=== PATIENT | female | born 2000 | race Two or more races ===

== ENCOUNTER → 2022-01-30 | Outpatient (CLI) | payer MEDICAID ==
[2022-01-30 10:59] LABS: Basophils # (auto) 0 10 ^3/uL (0-0.2); Basophils % (auto) 0.4 % (0.0-2.0); Eosinophils # (auto) 0 10 ^3/uL (0-0.8); Eosinophils % (auto) 0.5 % (0.0-7.0); Lymphocytes # (auto) 1.7 10 ^3/uL (0.4-5.4); Monocytes # (auto) 0.4 10 ^3/uL (0-1.3)
[2022-01-30 11:00] LABS: Hematocrit 31.7 % (36.0-46.0); Hemoglobin 9.9 g/dL (12.2-16.2); Lymphocytes % (auto) 19.5 % (10.0-50.0); Mean Corpuscular Hemoglobin 22.4 pg (28.0-32.0); Mean Corpuscular Hgb Conc. 31.1 g/dL (32.0-36.0); Mean Corpuscular Volume 72.1 fL (80.0-100.0); Monocytes % (auto) 5.2 % (0.0-12.0); Neutrophils # (auto) 6.4 10 ^3/uL (1.6-8.6); Neutrophils % (auto) 74.4 % (37.0-80.0); White Blood Cell 8.6 10^3/uL (4.4-10.8)
[2022-01-30 13:53] LABS: RUBELLA Positive
[2022-01-31 08:06] LABS: RPR Non Reactive (Non Reactive)
== END | disposition home or self-care (01) ==
LOC: LAB 09:54
PROVIDERS: ATTEND Obstetrics & Gynecology Obstetrics
DX: Z34.80 Encounter for supervision of other normal pregnancy, unspecified trimester (principal); Z31.430 Encounter of female for testing for genetic disease carrier status for procreative management; Z36.0 Encounter for antenatal screening for chromosomal anomalies; N39.0 Urinary tract infection, site not specified; Z3A.00 Weeks of gestation of pregnancy not specified
CPT/HCPCS: 36415; 82951; 84112; 84702; 85025; 86592; 86703; 86762; 86850; 86900; 86901; 87086; 87340

== ENCOUNTER → 2022-02-20 | Outpatient (CLI) | payer MEDICAID ==
[2022-02-20 08:59] LABS: Alcohol, Urine < 3.0 mg/dL (0-10); Amphetamine Screen, Urine NEGATIVE (NEGATIVE); Barbiturate Scree,Urine NEGATIVE (NEGATIVE); Benzodiazephine Screen, Urine NEGATIVE (NEGATIVE); Cannabinoid Screen, Urine NEGATIVE (NEGATIVE); Cocaine Screen, Urine NEGATIVE (NEGATIVE); Opiate Scree,Urine NEGATIVE (NEGATIVE); Phencyclidine Screen, Urine NEGATIVE (NEGATIVE)
== END | disposition home or self-care (01) ==
LOC: LAB 08:03
PROVIDERS: ATTEND Obstetrics & Gynecology Obstetrics
DX: Z34.80 Encounter for supervision of other normal pregnancy, unspecified trimester (principal); Z3A.00 Weeks of gestation of pregnancy not specified
CPT/HCPCS: 80307

== ENCOUNTER → 2022-02-27 | Outpatient (CLI) | payer MEDICAID ==
[2022-02-27 10:32] LABS: Basophils # (auto) 0 10 ^3/uL (0-0.2); Eosinophils # (auto) 0 10 ^3/uL (0-0.8); Lymphocytes # (auto) 1.5 10 ^3/uL (0.4-5.4); Mean Corpuscular Hgb Conc. 30.8 g/dL (32.0-36.0); Monocytes # (auto) 0.4 10 ^3/uL (0-1.3)
[2022-02-27 10:34] LABS: Basophils % (auto) 0.5 % (0.0-2.0); Eosinophils % (auto) 0.2 % (0.0-7.0); Hematocrit 31.8 % (36.0-46.0); Hemoglobin 9.8 g/dL (12.2-16.2); Lymphocytes % (auto) 20.4 % (10.0-50.0); Mean Corpuscular Volume 71.4 fL (80.0-100.0); Neutrophils # (auto) 5.5 10 ^3/uL (1.6-8.6); Neutrophils % (auto) 73.9 % (37.0-80.0); Red Blood Cells 4.46 10^6/uL (4.0-5.20); Red Cell Distribution Width 17.2 % (11.8-14.3); White Blood Cell 7.4 10^3/uL (4.4-10.8)
[2022-02-28 08:07] LABS: RPR Non Reactive (Non Reactive)
== END | disposition home or self-care (01) ==
LOC: LAB 09:28
PROVIDERS: ATTEND Obstetrics & Gynecology Obstetrics
DX: Z34.80 Encounter for supervision of other normal pregnancy, unspecified trimester (principal); N39.0 Urinary tract infection, site not specified; Z3A.00 Weeks of gestation of pregnancy not specified
CPT/HCPCS: 36415; 85025; 86592

== ENCOUNTER 2022-03-08 13:11 | Inpatient (IN) | payer MEDICAID ==
[~2022-03-08] VITALS: Ht 160 cm; Wt 82.1 kg
[2022-03-08] MEDS ORDERED: WITCH HAZEL-GLYCERIN PAD TOP PRN (16:30)
[2022-03-08] MEDS ORDERED: PHISODERM TOP SOLN 240ML BTL TOP PRN (16:30)
[2022-03-08] MEDS ORDERED: PROMETHAZINE HCL 25 MG/ML 1ML IV PRN (16:30)
[2022-03-08] MEDS ORDERED: DERMOPLAST 60ML BOTTLE TOP PRN (16:30)
[2022-03-08] MEDS ORDERED: LIDOCAINE 2%HCL (LOCAL ANESTH.) INJ 10ml MDV IJ PRN (16:30)
[2022-03-08] MEDS ORDERED: LACTATED RINGER'S 1,000 ML IV SCH (16:30)
[2022-03-08] MEDS ORDERED: BUTORPHANOL TARTRATE 2 MG/1 ML VIAL IV PRN ×2 (16:30)
[2022-03-08] MEDS ORDERED: LACT. RINGERS/OXYTOCIN 20UNITS 500 ML IV ONE ×2 (16:45→17:15)
[2022-03-08 17:27] LABS: Urine Bacteria FEW /hpf (None Seen); Urine Blood TRACE /uL (Negative); Urine Mucus FEW (None Seen); Urine Specific Gravity 1.029 (1.001-1.035); Urine WBC 3 /hpf (0 - 5)
[2022-03-08 17:37] LABS: Anion Gap 10 (5-15); Blood Urea Nitrogen 13 mg/dL (7-18); Calcium 8.6 mg/dL (8.5-10.1); Carbon Dioxide 19 mmol/L (21-32); Chloride 108 mmol/L (98-107); Glucose 56 mg/dL (74-106); Sodium 137 mmol/L (136-145)
[2022-03-08 17:38] LABS: INR 0.9 (0.9-1.15); Partial Thromboplastin Time 25.8 sec (24.6-33.4)
[2022-03-08 17:38] LABS: Amphetamine Screen, Urine NEGATIVE (NEGATIVE); Barbiturate Scree,Urine NEGATIVE (NEGATIVE); Benzodiazephine Screen, Urine NEGATIVE (NEGATIVE); Cannabinoid Screen, Urine NEGATIVE (NEGATIVE); Cocaine Screen, Urine NEGATIVE (NEGATIVE); Opiate Scree,Urine NEGATIVE (NEGATIVE); Phencyclidine Screen, Urine NEGATIVE (NEGATIVE)
[2022-03-08 17:39] LABS: Alanine Aminotransferase 13 U/L (13-56); Aspartate Aminotransferase 22 U/L (15-37); GFR African American 191 mL/min; GFR Non-African American 158 mL/min
[2022-03-08 17:42] LABS: Alkaline Phosphatase 180 U/L (45-117); Bilirubin, Total 0.4 mg/dL (0.2-1.0); Total Protein 7.6 g/dL (6.4-8.2)
[2022-03-08 17:43] LABS: Basophils # (auto) 0.1 10 ^3/uL (0-0.2); Basophils % (auto) 1.1 % (0.0-2.0); Eosinophils # (auto) 0 10 ^3/uL (0-0.8); Eosinophils % (auto) 0.3 % (0.0-7.0); Hematocrit 34.1 % (36.0-46.0); Hemoglobin 10.4 g/dL (12.2-16.2); Lymphocytes # (auto) 1.9 10 ^3/uL (0.4-5.4); Lymphocytes % (auto) 15.5 % (10.0-50.0); Mean Corpuscular Hemoglobin 21.9 pg (28.0-32.0); Mean Corpuscular Hgb Conc. 30.5 g/dL (32.0-36.0); Mean Corpuscular Volume 71.7 fL (80.0-100.0); Monocytes # (auto) 0.5 10 ^3/uL (0-1.3); Neutrophils # (auto) 9.6 10 ^3/uL (1.6-8.6); Neutrophils % (auto) 79.1 % (37.0-80.0); Nucleated Red Blood Cells % 0.1 %; Red Blood Cells 4.75 10^6/uL (4.0-5.20); Red Cell Distribution Width 17.6 % (11.8-14.3); White Blood Cell 12.1 10^3/uL (4.4-10.8)
[2022-03-08] MEDS ORDERED: LACTATED RINGER'S 1,000 ML IV ONE (18:30)
[2022-03-08] MEDS ORDERED: ROPIVACAINE HCL 200 ML EPI SCH ×2 (18:30→20:15)
[2022-03-08] MEDS ORDERED: LIDOCAINE HCL 2 %PF INJ 10ML AMP IJ ONE (18:30)
[2022-03-08] MEDS ORDERED: fentaNYL CITRATE 100 MCG/2 ML VL IV ONE (18:30)
[2022-03-08] MEDS ORDERED: ROPIVACAINE HCL 200 ML ONE (18:39)
[2022-03-08] MEDS ORDERED: fentaNYL CITRATE 100 MCG/2 ML VL ONE (18:39)
[2022-03-08] MEDS ORDERED: ePHEDrine SULFATE 50 MG/ML AMP ONE (18:39)
[2022-03-08] MEDS ORDERED: LACT. RINGERS/OXYTOCIN 20UNITS 1,000 ML IV SCH (20:15)
[2022-03-09] MEDS ORDERED: ONDANSETRON ODT 4 MG TAB PO PRN (01:00)
[2022-03-09] MEDS ORDERED: IBUPROFEN 800 MG TAB PO SCH (01:00)
[2022-03-09] MEDS ORDERED: IBUPROFEN 600 MG TAB PO PRN (01:00)
[2022-03-09 03:00] VITALS: BP 119/59
[2022-03-09 06:57] VITALS: BP 107/56
[2022-03-09 10:59] VITALS: BP 107/62
[2022-03-09] MEDS: ACETAMINOPHEN 325 MG TAB PO PRN (11:09)
[2022-03-09 19:30] VITALS: BP 111/65
[2022-03-09 23:00] VITALS: BP 114/59
[2022-03-10 03:00] VITALS: BP 108/61
[2022-03-10] MEDS: ACETAMINOPHEN 325 MG TAB PO PRN (03:12)
[2022-03-10 07:20] VITALS: BP 107/59
[2022-03-10 08:06] LABS: RPR Non Reactive (Non Reactive)
[2022-03-10 10:36] VITALS: BP_SYST 107
== END 2022-03-10 10:36 | disposition home or self-care (01) | DRG 560 ==
LOC: LDRP 13:11 → OBSVTOIN 16:05
PROVIDERS: ADMIT Obstetrics & Gynecology; ATTEND Obstetrics & Gynecology
PROC: 10E0XZZ Delivery of Products of Conception, External Approach (ICD-10-PCS; principal; 2022-03-08)
PROC: 3E0R3BZ Introduction of Anesthetic Agent into Spinal Canal, Percutaneous Approach (ICD-10-PCS; 2022-03-08)
PROC: 00HU33Z Insertion of Infusion Device into Spinal Canal, Percutaneous Approach (ICD-10-PCS; 2022-03-08)
PROC: 10907ZC Drainage of Amniotic Fluid, Therapeutic from Products of Conception, Via Natural or Artificial Opening (ICD-10-PCS; 2022-03-08)
DX: O69.81X0 Labor and delivery complicated by cord around neck, without compression, not applicable or unspecified (principal); Z37.0 Single live birth; Z20.822 Contact with and (suspected) exposure to COVID-19; Z3A.39 39 weeks gestation of pregnancy
CPT/HCPCS: 36415; 59025; 59409; 62282; 80053; 80307; 81001; 85025; 85610; 85730; 86592; 86850; 86900; 86901; 87426; 96360; 96361; 96365; 96366; G0378; J2590

== ENCOUNTER 2024-10-11 23:34 | Inpatient (IN) | payer MEDICAID ==
[~2024-10-11] VITALS: Ht 154.9 cm; Wt 77.1 kg
[2024-10-12] VITALS (7 sets, daily range): BP systolic 99–115; BP diastolic 55–69; PULSE 66–78; RESP 16–18; TEMP 98.9–100.5; O2SAT 99
[2024-10-12 00:34] LABS: Urine Bacteria FEW /hpf (None Seen); Urine Blood Negative /uL (Negative); Urine Budding Yeast OCCASIONAL /hpf (None Seen); Urine Clarity Clear (Clear); Urine Color Light-Yellow (Yellow); Urine Protein, UAD Negative (Negative); Urine Specific Gravity 1.016 (1.001-1.035); Urine Squamous Epithelial Cell FEW /hpf (<5); Urine Urobilinogen Normal (Negative); Urine WBC 2 /HPF (0-5); Urine pH 6.5 (5.0-9.0)
--- NOTE | 2024-10-12 01:08 | DVH ---
EXAM: US OB ULTRASOUND COMP GTR 14 WKS HISTORY: [facility] TECHNIQUE: Multiple real-time grayscale images of the gravid uterus with duplex Doppler color flow an d M-mode spectral analysis. COMPARISON: None FINDINGS: IUP single live fetus at 38 weeks 5 days average ultrasound age (AUA) based on composite averages of the BPD, head circumference, abdominal circumference and femur length Age based on (early ultrasound) : 38 weeks 5 days MEASUREMENTS: BPD: 9.5 cm GA: 38 w 5 d HC: 33.8 cm GA: 38 w 6 d AC: 34.4 cm GA: 38 w 2 d FL: 7.6 cm GA: 38 w 5 d Estimated weight 3512 grams; 7 lbs 12 oz +/-1 lb 3 oz, 52nd percentile. heart rate 144 beats per minute HARVEY 8.4 cm ANATOMIC SURVEY: Complete anatomic survey not performed at this time. Cephalic Presentation Right lateral placenta without previa or abruption IMPRESSION: 1. IUP single live fetus at 38 weeks 5 days AUA corresponding to an SHANTE of 10/20/2024. 2. No abnormality detected.
[2024-10-12 01:43] LABS: Amphetamine Screen, Urine Neg (NEGATIVE); Barbiturate Scree,Urine Neg (NEGATIVE); Benzodiazephine Screen, Urine Neg (NEGATIVE); Cocaine Screen, Urine Neg (NEGATIVE); Opiate Scree,Urine Neg (NEGATIVE); Phencyclidine Screen, Urine Neg (NEGATIVE)
[2024-10-12 02:02] LABS: Cannabinoid Screen, Urine Neg (NEGATIVE)
[2024-10-12] MEDS ORDERED: ONDANSETRON HCL 4 MG/2 ML VIAL IV PRN (02:15)
[2024-10-12] MEDS ORDERED: ePHEDrine SULFATE 50 MG/ML AMP IV ONE ×2 (02:15→03:00)
[2024-10-12] MEDS ORDERED: NALBUPHINE HCL 10 MG/1ml INJECTION IV PRN (02:15)
[2024-10-12] MEDS ORDERED: LACTATED RINGER'S 1,000 ML IV SCH (02:15)
[2024-10-12] MEDS ORDERED: PENICILLIN G POT 5MIL/D5 50ML 50 ML IV ONE (02:15)
[2024-10-12] MEDS ORDERED: LIDOCAINE 2%HCL (LOCAL ANESTH.) INJ 20ML MDV IJ PRN (02:15)
[2024-10-12] MEDS ORDERED: LACTATED RINGER'S 1,000 ML IV ONE (02:15)
[2024-10-12 02:34] LABS: Eosinophils # (auto) 0 10 ^3/uL (0-0.8); Mean Corpuscular Hgb Conc. 31.4 g/dL (32.0-36.0); Monocytes # (auto) 0.3 10 ^3/uL (0-1.3); Neutrophils # (auto) 8.6 10 ^3/uL (1.6-8.6)
[2024-10-12 02:35] LABS: Basophils # (auto) 0.1 10 ^3/uL (0-0.2); Basophils % (auto) 0.6 % (0.0-2.0); Eosinophils % (auto) 0.1 % (0.0-7.0); Hematocrit 32.8 % (36.0-46.0); Hemoglobin 10.3 g/dL (12.2-16.2); Lymphocytes # (auto) 1.2 10 ^3/uL (0.4-5.4); Lymphocytes % (auto) 11.6 % (10.0-50.0); Mean Corpuscular Hemoglobin 22.1 pg (28.0-32.0); Mean Corpuscular Volume 70.5 fL (80.0-100.0); Neutrophils % (auto) 84.7 % (37.0-80.0); Platelet Count (auto) 337 10^3/uL (140-450); Red Blood Cells 4.65 10^6/uL (4.0-5.20); Red Cell Distribution Width 19.4 % (11.8-14.3); White Blood Cell 10.2 10^3/uL (4.4-10.8)
[2024-10-12] MEDS: PENICILLIN G POTASSIUM 2,500,000 UNITS in D5W 5% 50 ML IV SCH (02:38)
[2024-10-12] MEDS: WITCH HAZEL-GLYCERIN PAD TOP PRN (02:38)
[2024-10-12] MEDS: DERMOPLAST 60ML BOTTLE TOP PRN (02:38)
[2024-10-12 02:50] LABS: Albumin 4.4 g/dL (3.2-4.8); Anion Gap 12 (5-15); Aspartate Aminotransferase 16 U/L (<34); BUN/Creatinine Ratio 18.5 (10.0-20.0); Blood Urea Nitrogen 10 mg/dL (9-23); Calcium 9.5 mg/dL (8.7-10.4); Carbon Dioxide 21 mmol/L (20-31); Chloride 105 mmol/L (98-107); Glucose 97 mg/dL (74-106); Potassium 3.7 mmol/L (3.5-5.1); Sodium 138 mmol/L (136-145); Total Protein 7.7 g/dL (5.7-8.2)
[2024-10-12 02:51] LABS: Alanine Aminotransferase < 9 U/L (7-40); Alkaline Phosphatase 141 U/L (46-116); Bilirubin, Total 0.4 mg/dL (0.2-1.0)
[2024-10-12] MEDS ORDERED: ROPIVACAINE HCL 100 ML ONE (02:53)
[2024-10-12] MEDS ORDERED: LIDOCAINE HCL 2 %PF INJ 10ML AMP IJ ONE (03:00)
[2024-10-12] MEDS ORDERED: NALOXONE HCL 0.4 MG/ML VIAL IV ONE (03:00)
[2024-10-12 03:07] LABS: INR 0.91 (0.9-1.15); Partial Thromboplastin Time 24.5 SEC (24.5-34.5); Prothrombin Time 9.7 sec (9.3-11.8)
[2024-10-12] MEDS: LACT. RINGERS/OXYTOCIN 20UNITS 500 ML IV ONE ×2 (06:59→07:01)
--- NOTE | 2024-10-12 07:02 | DVHHP2 ---
OB CC & HPI Date Date of Admission: Oct 12, 2024 Patient Identification: : 3 Para: 2 EDC: Oct 16, 2024 EGA: 39 Chief Complaints: Reason for admission: active labor Other reason for admission: Labor Admission Nurse Assessment Rev: Yes History of Present Complaints Dr Stone's patient Past Medical History Cardiac: No pertinent Hx Pulmonary: No pertinent Hx Central Nervous System: No pertinent Hx GI: No pertinent Hx Hemotology/Oncology: No pertinent Hx Hepatobiliary: No pertinent Hx Psychiatric: No pertinent Hx Musculoskeletal: No pertinent Hx Rheumotologic: No pertinent Hx Infectious Disease: No peritnent Hx ENT: No pertinent Hx Renal/: No pertinent Hx Endocrine: No pertinent Hx Dermatology: No pertinent Hx Past Surgical History: No pertinent Hx OB History OB History Care: Good Care Ultrasounds: Normal mid trimester US Obstetrical Complications: None, Other (mild anemia) Allergies: Coded Allergies: NO KNOWN ALLERGIES (Unverified , 03/08/22) Home Meds No Active Prescriptions or Reported Meds Current Medications Current Medications Medications (Trade) Dose Ordered Sig/Emmy Route PRN Reason Start Time Stop Time Status Last Admin Lactated Ringer's 1,000 ml @ 125 mls/hr Q8H IV 10/12/24 02:15 Nalbuphine HCl (Nubain) 10 mg Q4HP PRN IV MODERATE PAIN (4-6 PAIN SCALE) 10/12/24 02:15 Penicillin G Potassium [id number] units/Dextrose 50 ml @ 100 mls/hr Q4H IV 10/12/24 06:15 10/12/24 02:38 Witch Deb (Tucks) 1 pad PRN PRN TOP PERINEAL AREA DISCOMFORT 10/12/24 02:15 10/12/24 02:38 Sodium Lauryl Sulfate (Phisoderm) 240 ml PRN PRN TOP PERINEAL AREA DISCOMFORT 10/12/24 02:15 Benzocaine (Dermoplast) 1 applic PRN PRN TOP PERINEAL AREA DISCOMFORT 10/12/24 02:15 10/12/24 02:38 Lidocaine HCl (Xylocaine) 20 ml ONCE PRN IJ PERINEAL AREA DISCOMFORT 10/12/24 02:15 Ondansetron HCl (Zofran) 4 mg Q6HPRN PRN IV NAUSEA / VOMITING 10/12/24 02:15 Family & Social History Family/Social History Blood Type: O+ Rubella: immune RPR/VDRL: Negative GBS Status: Unknown HBsAG: Negative Review of Systems Constitutional: No symptom reported Ears, Nose, & Throat: No symptom reported Eyes: No symptom reported Pulmonary/Respiratory: No symptom reported Cardiovascular: No symptom reported Gastrointestinal: No symptom reported Genitourinary: No symptom reported Musculoskeletal: No symptom reported Skin: No symptom reported Psychiatric: No symptom reported Endocrine: No symptom reported Hemotologic/Lymphatic: No symptom reported OB Admission Exam Physical Exam HEENT: TMs Normal, Fontanelles Normal, Nasal Mucosa Normal, Eyes non-injected, Oropharynx Normal, PERRLA, Moist Membranes, EOMI Heart: Rhythm Normal Lungs: Clear Abdomen: Non tender Extremities: Normal Reflexes: Normal Cervical Dilatation: 5cm Effacement: 75% Station: -1 Membranes: Intact Amniotic Fluid: Clear Heart Rate: 130's Accelerations: Accelerations Present Decelerations: No Decelerations Short Term Variability: Present Loan Servicing Officer Variability: Average (6-25) Contractions on Admission: None Intensity: Moderate OB Plan Plan Admitting Diagnosis: LABOR Plan: Expectant Management Induction Methd: AROM Other Plan: Epidural PATRICIA GOMEZ DO Oct 12, 2024 07:02
[2024-10-12] MEDS: PHISODERM TOP SOLN 240ML BTL TOP PRN (07:07)
--- NOTE | 2024-10-12 07:12 | LDN2 ---
Labor and Delivery Note Date 10/12/24 Age 24 3 Para 2 AB 0 EDC 10/16/2024 EGA 39+ Diagnosis Labor Vaginal Delivery: VTX Vacuum Assisted: No Placenta: Spontaneous Sex: Male Nuchal Cord Transected: No Amniotic Fluid: Clear Anesthesia Epidural Episiotomy: No Extension: No Repaired with no EBL 300cc Labs Laboratory Tests 01/30/22 10:12: Hepatitis B Surface Antigen Negative, HIV (1&2) Antibody Negative, Rubella Antibody Positive Blood Bank 10/12/24 02:16: Blood Type O POSITIVE Complications none Conditions none Instructor Technical Training none present Visit Coding OBGYN Date of Service: Oct 12, 2024 Billing Provider: PATRICIA GMOEZ DO INSIDE [employer] POLISHER Common Visit Codes: 99148-YFA/OBS SAME DATE (LOW), 06372-DPD/OBS SAME DATE (MOD), 81459-PSK/OBS SAME DATE (HIGH) INSIDE [employer] POLISHER Procedure Codes: 30459-YUL DELIVERY ONLY PATRICIA GOMEZ DO Oct 12, 2024 07:12
[2024-10-12] MEDS: ACETAMINOPHEN 325 MG TAB PO PRN (07:52)
[2024-10-12] MEDS: ceFAZolin 1GM/50ML 50 ML IV SCH (09:49)
[2024-10-12] MEDS: IBUPROFEN 600 MG TAB PO PRN (11:13)
[2024-10-12] MEDS ORDERED: PREN1TAB71 OR (14:55)
[2024-10-13 02:38] VITALS: BP 116/68; PULSE 74; RESP 16; TEMP 98.3; O2SAT 99
[2024-10-13 07:15] VITALS: BP 106/59; PULSE 74; RESP 16; TEMP 98.8; O2SAT 99
[2024-10-13 11:00] VITALS: BP 108/61; PULSE 67; RESP 16; TEMP 98.6; O2SAT 97
--- NOTE | 2024-10-13 11:09 | DVHDS2 ---
Discharge Summary Date of Admission Oct 12, 2024 at 02:05 Date of Discharge: Oct 13, 2024 Admitting Diagnosis Labor Wounds: None Labs/Diagnostic Data: Laboratory Results Test 10/12/24 02:16 10/12/24 00:02 White Blood Count 10.2 10^3/uL (4.4-10.8) Red Blood Count 4.65 10^6/uL (4.0-5.20) Hemoglobin 10.3 g/dL (12.2-16.2) Hematocrit 32.8 % (36.0-46.0) Mean Corpuscular Volume 70.5 fL (80.0-100.0) Mean Corpuscular Hemoglobin 22.1 pg (28.0-32.0) Mean Corpuscular Hemoglobin Concent 31.4 g/dL (32.0-36.0) Red Cell Distribution Width 19.4 % (11.8-14.3) Platelet Count 337 10^3/uL (140-450) Mean Platelet Volume 7.6 fL (6.9-10.8) Neutrophils (%) (Auto) 84.7 % (37.0-80.0) Lymphocytes (%) (Auto) 11.6 % (10.0-50.0) Monocytes (%) (Auto) 3.0 % (0.0-12.0) Eosinophils (%) (Auto) 0.1 % (0.0-7.0) Basophils (%) (Auto) 0.6 % (0.0-2.0) Neutrophils # (Auto) 8.6 10 ^3/uL (1.6-8.6) Lymphocytes # (Auto) 1.2 10 ^3/uL (0.4-5.4) Monocytes # (Auto) 0.3 10 ^3/uL (0-1.3) Eosinophils # (Auto) 0 10 ^3/uL (0-0.8) Basophils # (Auto) 0.1 10 ^3/uL (0-0.2) Nucleated Red Blood Cells 0.0 % Prothrombin Time 9.7 sec (9.3-11.8) Prothrombin Time INR 0.91 (0.9-1.15) Activated Partial Thromboplast Time 24.5 SEC (24.5-34.5) Sodium Level 138 mmol/L (136-145) Potassium Level 3.7 mmol/L (3.5-5.1) Chloride Level 105 mmol/L (98-107) Carbon Dioxide Level 21 mmol/L (20-31) Anion Gap 12 (5-15) Blood Urea Nitrogen 10 mg/dL (9-23) Creatinine 0.54 mg/dL (0.550-1.02) Glomerular Filtration Rate Calc 132 mL/min (>90) BUN/Creatinine Ratio 18.5 (10.0-20.0) Serum Glucose 97 mg/dL (74-106) Calcium Level 9.5 mg/dL (8.7-10.4) Total Bilirubin 0.4 mg/dL (0.2-1.0) Aspartate Amino Transferase (AST) 16 U/L (<34) Alanine Aminotransferase (ALT) < 9 U/L (7-40) Alkaline Phosphatase 141 U/L (46-116) Total Protein 7.7 g/dL (5.7-8.2) Albumin 4.4 g/dL (3.2-4.8) Treponema pallidum Antibody Non-reactive (Negative) Hepatitis C Antibody Negative (Negative) Urine Color Light-yellow (Yellow) Urine Clarity Clear (Clear) Urine pH 6.5 (5.0-9.0) Urine Specific [place] 1.016 (1.001-1.035) Urine Protein Negative (Negative) Urine Ketones Negative (Negative) Urine Blood Negative /uL (Negative) Urine Nitrite Negative (Negative) Urine Bilirubin Negative (Negative) Urine Urobilinogen Normal mg/dL (Negative) Urine Leukocyte Esterase Negative /uL (Negative) Urine RBC 1 /hpf (0 - 4) Urine Microscopic WBC 2 /HPF (0-5) Urine Squamous Epithelial Cells Few /hpf (<5) Urine Bacteria Few /hpf (None Seen) Urine Yeast (Budding) Occasional /hpf (None Urine Glucose Normal mg/dL (Normal) Urine Opiates Screen Neg (NEGATIVE) Urine Fentanyl Screen Neg (NEGATIVE) Urine Barbiturates Screen Neg (NEGATIVE) Urine Phencyclidine Screen Neg (NEGATIVE) Urine Amphetamines Screen Neg (NEGATIVE) Urine Benzodiazepines Screen Neg (NEGATIVE) Urine Cocaine Screen Neg (NEGATIVE) Urine Cannabinoids Screen Neg (NEGATIVE) Other Laboratory Tests 10/12/24 02:16 Brief Hx & Hospital Course: Patient arrived in labor progressed with epidural and delivered without complications Operations or Procedures None Condition at Discharge: Good Final Diagnosis/Problems List Status post Discharge Disposition: Home Discharge Statement: "Patient was advised to return to the ER or call 911 if any headaches, dizziness, shortness of breath, chest pain, abdominal pain, bleeding, fevers, or worsening of medical condition. Patient was counseled about treatment plan, medications, possible side effects, patientverbalized understanding. All questions were answered to the best of my ability. This discharge took greater then 30 minutes in planning, reviewing documentation, counseling the patient, and discussing with other team members." ASSESSMENT ASSESSMENT Assessment Visit Coding OBGYN Date of Service: Oct 13, 2024 Billing Provider: PATRICIA GOMEZ DO SENIOR QUALITY ASSURANCE ANALYST Common Visit Codes: 12490-UQI/OBS SAME DATE (MOD), 44284-IXN/OBS SAME DATE (HIGH) SENIOR QUALITY ASSURANCE ANALYST Procedure Codes: 79824-HQI DEL INCLUDING PATRICIA GOMEZ DO Oct 13, 2024 11:09
--- NOTE | 2024-10-13 11:11 | DVHPN2 ---
Chief Complaints Patient reports: No new complaints, Feels better Nursing reports: No new complaints, No abdominal pain, No chest pain, No dizziness, No cough Objective Vitals Vital Signs Date Time Temp Pulse Resp B/P (MAP) Pulse Ox O2 Delivery O2 Flow Rate FiO2 10/13/24 07:15 Room Air 10/13/24 07:15 98.8 74 16 106/59 (75) 99 98.8 Medications None Comment Patient doing well ambulating tolerating General: Normal Neck: Normal Lungs: Normal Cardiovascular: Normal Abdominal: Normal Musculoskeletal: Normal Extremities: Normal Skin: Normal Neurological: Normal Studies Laboratory Tests 10/12/24 02:16 Test 10/12/24 02:16 Range/Units Serum Glucose 97 74-106 mg/dL Ass/Plan Assessment day 1 Plan Stable improved See discharge summary See discharge orders. PATRICIA GOMEZ DO Oct 13, 2024 11:11
[2024-10-15 03:08] LABS: Chlamydia Trachomatis, NAA Negative (Negative); Neisseria gonorrhoeae, NAA Negative (Negative)
== END 2024-10-13 13:21 | disposition home or self-care (01) | DRG 560 ==
LOC: LDRP 23:34 → OBSVTOIN 10-12 02:05 → LDRP 10-12 02:05
PROVIDERS: ADMIT Obstetrics & Gynecology; ATTEND Obstetrics & Gynecology
PROC: 10E0XZZ Delivery of Products of Conception, External Approach (ICD-10-PCS; principal; 2024-10-12)
PROC: 00HU33Z Insertion of Infusion Device into Spinal Canal, Percutaneous Approach (ICD-10-PCS; 2024-10-12)
PROC: 3E0R3BZ Introduction of Anesthetic Agent into Spinal Canal, Percutaneous Approach (ICD-10-PCS; 2024-10-12)
DX: O80 Encounter for full-term uncomplicated delivery (principal); Z37.0 Single live birth; Z3A.39 39 weeks gestation of pregnancy
CPT/HCPCS: 36415; 59025; 59409; 62282; 76805; 80053; 80307; 81001; 81002; 85025; 85610; 85730; 86780; 86803; 86850; 86900; 86901; 87081; 94760; 96360; 96361; 96365; 96366; G0378; J2540; J2590; J7060